=== PATIENT | female | born 2000 | race Caucasian/White ===

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

== ENCOUNTER 2018-04-14 22:21 | Inpatient (IN) | payer MEDICAID ==
[2018-04-15] MEDS ORDERED: LACTATED RINGERS 1,000 ML IV ONE (00:14)
[2018-04-15 01:11] LABS: Hematocrit 30.1 % (30.3-42.9); Hemoglobin 10.6 gm/dl (10.1-14.3); Mean Corpuscular HGB Conc 35 % (30-34); Mean Corpuscular Hemoglobin 32 pg (28-32); Mean Corpuscular Volume 92 fl (79-97); Platelet Count 213 K/mm3 (140-440); Red Blood Count 3.28 M/mm3 (3.65-5.03)
[2018-04-15] MEDS ORDERED: SUBLIMAZE ONE (01:21)
[2018-04-15] MEDS ORDERED: BRETHINE IVP PRN (01:31)
[2018-04-15] MEDS ORDERED: XYLOCAINE 2% INFILTRATI ONE (01:31)
[2018-04-15] MEDS ORDERED: BRETHINE SUB-Q PRN (01:31)
[2018-04-15] MEDS ORDERED: MINERAL OIL PO PRN (01:31)
[2018-04-15] MEDS ORDERED: SUBLIMAZE IV PRN (01:31)
[2018-04-15] MEDS ORDERED: STADOL IV PRN (01:31)
[2018-04-15] MEDS ORDERED: LACTATED RINGERS 1,000 ML IV SCH (02:00)
[2018-04-15] MEDS ORDERED: PITOCin/NS 20 UNIT/1000ML DRIP 20 UNITS/1,000 ML BAG IV SCH (02:00)
[2018-04-15] MEDS ORDERED: NARCAN 2 MG/2 ML ONE (02:24)
--- NOTE | 2018-04-15 03:02 | History and Physical Report ---
History of Present Illness Date of examination: 04/15/18 Date of admission: 04/15/18 01:22 Chief complaint: Contractions History of present illness: 17yo G 3 P 1 0 1 1 at 39 weeks 6 days here with c/o painful contractions since 8pm. She reports positive movements but denies VB or LOF. She is a [facility] pt who initiated care at 14 weeks gestation. Her course was complicated by late entry to care, vitamin D deficiency (took supplements) and anemia (on iron therapy). Labs: O+, antibody neg, RI, VDRL NR, HBsAg, HIV neg, HSV II neg, GC/CT neg, GBS neg. Past History Past Medical History: no pertinent history Past Surgical History: no surgical history REGULATORY LEAD History: other (spontaneous ) Family/Genetic History: diabetes (paternal grandmother) Social history: , lives with family, full code. denies: smoking, alcohol abuse, prescription drug abuse, IV drug use - Obstetrical History Expected Date of Delivery: 04/16/18 Actual Gestation: 39 Week(s) 6 Day(s) : 3 Para: 1 Hx # Term Pregnancies: 1 Number of Pregnancies: 0 Spontaneous Abortions: 1 Induced : 0 Number of Living Children: 1 #1 Gender: Male year: (03/05/2017) Method of Delivery: Vaginal Gestational age at delivery: 40 Complications: none Medications and Allergies Allergies Allergy/AdvReac Type Severity Reaction Status Date / Time No Known Allergies Allergy Verified 11/09/15 19:21 Home Medications Medication Instructions Recorded Confirmed Last Taken Type Acetaminophen/Codeine [Tylenol #3] 1 tab PO Q6H PRN #10 tab 11/10/15 03/05/17 14:00 Rx 1 Active Meds: Active Medications Butorphanol Tartrate (Stadol) 2 mg IV Q2H PRN PRN Reason: Pain , Severe (7-10) Ephedrine Sulfate (Ephedrine Sulfate) 10 mg IV Q2M PRN PRN Reason: Hypotension Fentanyl (Sublimaze) 100 mcg IV Q2H PRN PRN Reason: Labor Pain Lactated Ringer's (Lactated Ringers) 1,000 mls @ 125 mls/hr IV DIRECT HUMA Last Admin: 04/15/18 02:15 Dose: 125 mls/hr Oxytocin/Sodium Chloride (Pitocin/Ns 20 Unit/1000ml Drip) 20 units in 1,000 mls @ 125 mls/hr IV DIRECT HUMA Mineral Oil (Mineral Oil) 30 ml PO QHS PRN PRN Reason: Constipation Terbutaline Sulfate (Brethine) 0.25 mg SUB-Q ONCE PRN PRN Reason: Hyperstimulation/Hypertonicity Terbutaline Sulfate (Brethine) 0.25 mg IVP ONCE PRN PRN Reason: Hyperstimulation/Hypertonicity Review of Systems All systems: negative - Vital Signs Vital signs: Vital Signs Pulse BP 90 116/68 04/14/18 22:36 04/14/18 22:36 Temp Pulse Resp BP Pulse Ox 98.2 F 111 H 20 124/63 100 04/15/18 01:26 04/15/18 02:51 04/15/18 01:26 04/15/18 02:48 04/15/18 02:51 - Obstetrical FHR: category 2 FHR comments: baseline 150, moderate variability, 15x15 accels, variable decel Uterine Contraction Monitor Mode: External Cervical Dilatation: 4 (per RN) Cervical Effacement Percentage: 50 (per RN) station: -2 (per RN) Uterine Contraction Frequency (min): 2-5 Uterine Contraction Pattern: Regular Results Result Diagrams: 04/15/18 00:45 Abnormal lab results 04/15/18 Range/Units 00:45 WBC 11.6 H (4.5-11.0) K/mm3 RBC 3.28 L (3.65-5.03) M/mm3 Hct 30.1 L (30.3-42.9) % MCHC 35 H (30-34) % All other labs normal. Assessment and Plan - Patient Problems (1) 39 weeks gestation of Current Visit: Yes Status: Acute (2) Active labor at term Current Visit: Yes Status: Acute Plan to address problem: Admit to L&D with routine labor orders Anticipate vaginal delivery
[2018-04-15] MEDS ORDERED: TYLENOL PO PRN (03:12)
[2018-04-15] MEDS ORDERED: NORCO 5/325 PO PRN (03:12)
[2018-04-15] MEDS ORDERED: DULCOLAX PR PRN (03:12)
[2018-04-15] MEDS ORDERED: ZOFRAN IV PRN (03:12)
[2018-04-15] MEDS ORDERED: BENADRYL PO PRN (03:12)
[2018-04-15] MEDS ORDERED: PHENERGAN PR PRN (03:12)
[2018-04-15] MEDS ORDERED: MILK OF MAGNESIA PO PRN (03:12)
[2018-04-15] MEDS ORDERED: LANSINOH TP PRN (03:12)
[2018-04-15] MEDS ORDERED: TUCKS PAD TP PRN (03:12)
[2018-04-15] MEDS ORDERED: PHENERGAN PO PRN (03:12)
--- NOTE | 2018-04-15 03:27 | Procedure Note ---
OB Delivery Note - Delivery Date of Delivery: 04/15/18 (02:28) Surgeon: CALEB DIXON (MARIE) Estimated blood loss: other (400cc) - Vaginal Delivery presentation: vertex Delivery position: OA Intrapartum events: precipitous labor- <3hr Delivery induction: none Delivery monitor: external FHT, external uterine Route of delivery: Delivery placenta: spontaneous (02:32) Delivery cord: nuchal cord (x1, loose), 3 umbilical vessels Episiotomy: none Delivery laceration: other (left periurethral) Delivery repair: vicryl Anesthesia: local Delivery comments: of a less vigorous term 7 lbs 5 oz male on 04/15/18 @ 02:28 with NICU team in the room. After delivery of head, nuchal cord noted x1 and reduced prior to delivery of body. Baby placed [id number] on maternal abdomen, umbilical cord double-clamped by MARIE Dixon and cut by FOB. Cord blood collected. Spontaneous delivery of placenta, Angela-side presenting @ 02:32, Heavy lochia present. Fundal massage and IV Pitocin bolus initiated. Fundus F/ML/U-1. Left periurethral laceration noted and repaired with 2 interrupted stitches using a 3 -0 vicryl needle under local anesthesia. Pt tolerated the procedure well. Placenta intact; was discarded. Mom and baby in stable condition. - Infant A at 1 minute: 8 at 5 minutes: 9 Gender: Male (7 lbs 5 oz (3323 gm); 21 in)
[2018-04-15] MEDS ORDERED: SODIUM CHLORIDE FLUSH SYRINGE 10 ML IV NR (04:00)
[2018-04-15] MEDS: MOTRIN PO SCH (07:30)
[2018-04-15] MEDS ORDERED: FEOSOL PO SCH (10:00)
[2018-04-15] MEDS ORDERED: PRENATAL VITAMIN PO SCH (10:00)
[2018-04-15 14:55] LABS: Hematocrit 26.8 % (30.3-42.9); Hemoglobin 9.2 gm/dl (10.1-14.3)
[2018-04-16] MEDS: MOTRIN PO SCH
--- NOTE | 2018-04-16 10:16 | Progress Note ---
Assessment and Plan A: PP Day #1 Asymptomatic Anemia P: Follow Routine Orders D/C home today per patient request Plans OCPs for Contraception RTO in 6 Weeks Subjective - Subjective Date of service: 04/16/18 Patient reports: appetite normal, voiding normally, pain well controlled, flatus , bowel movement, ambulating normally [place]: doing well, bottle feeding (and ) Objective - Vital Signs Latest vital signs: Vital Signs Temp Pulse Resp BP 04/16/18 08:15 98.2 F 89 18 108/60 04/16/18 00:00 18 04/15/18 23:30 98.4 F 63 18 103/69 04/15/18 19:30 98.7 F 74 16 102/69 04/15/18 15:27 98.7 F 88 20 105/55 04/15/18 10:44 98.4 F 82 18 120/49 Intake and Output 04/15/18 04/16/18 04/16/18 22:59 06:59 14:59 Intake Total 300 200 120 Balance 300 200 120 Intake: Oral 200 120 Intake, Free Water 300 Other: Total, Intake Amount 200 120 # Voids Void 1 - Exam Breasts: Present: normal Cardiovascular: Present: Regular rate Lungs: Present: Clear to auscultation, Normal air movement Abdomen: Present: normal appearance, soft, normal bowel sounds Uterus: Present: normal, firm, fundal height below umbilicus Extremities: Present: normal - Labs Labs: Abnormal lab results 04/15/18 Range/Units 14:26 Hgb 9.2 L (10.1-14.3) gm/dl Hct 26.8 L (30.3-42.9) %
--- NOTE | 2018-04-16 10:17 | Discharge Summary ---
Providers - Providers Date of Admission: 04/15/18 01:22 Date of discharge: 04/16/18 Attending physician: WILMER BARRIOS MD Primary care physician: WILMER BARRIOS MD Hospitalization Reason for admission: active labor Delivery: Episiotomy: none Laceration: 1st degree Other procedures: none complications: none Discharge diagnosis: IUP at term delivered [place] baby: male Condition at discharge: Good Disposition: DC-01 TO HOME OR SELFCARE Plan - Provider Discharge Summary Activity: routine, no sex for 6 weeks, no heavy lifting 4 weeks, no strenuous exercise Diet: routine Instructions: routine Additional instructions: [] Smoking cessation referral if applicable(refer to patient education folder for contact #) [] Refer to [facility]'s [facility] Booklet Call your doctor immediately for: * Fever > 100.5 * Heavy vaginal bleeding ( >1 pad per hour) * Severe persistent headache * Shortness of breath * Reddened, hot, painful area to leg or breast * Drainage or odor from incision. * Keep incision clean and dry at all times and follow doctor's instructions regarding bathing/showering - Follow up plan Follow up: WILMER BARRIOS MD [Primary Care Provider] - 6 Weeks
[2018-04-16 15:13] VITALS: BP 123/56
== END 2018-04-16 14:15 | disposition home or self-care (01) | DRG 775 ==
LOC: TRG 22:21 → LD 04-15 01:22 → OB 04-15 04:45
PROVIDERS: ADMIT Obstetrics & Gynecology; ATTEND Obstetrics & Gynecology
PROC: 10E0XZZ Delivery of Products of Conception, External Approach (ICD-10-PCS; principal; 2018-04-15)
PROC: 0UQMXZZ Repair Vulva, External Approach (ICD-10-PCS; 2018-04-15)
DX: O62.3 Precipitate labor (principal); O69.81X0 Labor and delivery complicated by cord around neck, without compression, not applicable or unspecified; Z3A.39 39 weeks gestation of pregnancy; Z37.0 Single live birth; O71.82 Other specified trauma to perineum and vulva; O90.81 Anemia of the puerperium; D64.9 Anemia, unspecified; Z83.3 Family history of diabetes mellitus
CPT/HCPCS: 36415; 85014; 85018; 85027; 86592; 86850; 86900; 86901; 99211; G0463; J2310; J2590; J3010; J7120